=== PATIENT | female | born 1990 | race Caucasian/White ===

== ENCOUNTER → 2017-11-02 | Outpatient (REF) | payer BC | LOC: M LAB REF 13:30 | DX: Z12.4 Encounter for screening for malignant neoplasm of cervix (principal) ==

== ENCOUNTER → 2018-11-14 | Outpatient (REF) | payer BC | LOC: M LAB REF 13:14 | PROVIDERS: ATTEND Advanced Practice Midwife | DX: Z12.4 Encounter for screening for malignant neoplasm of cervix (principal) ==

== ENCOUNTER → 2021-04-08 | Outpatient (REF) | payer BC ==
[2021-04-08 17:16] LABS: HEMATOCRIT 42.3 % (36.0-47.0); HEMOGLOBIN 14.1 g/dl (12.0-15.5); MEAN CORPUSCULAR HEMOGLOBIN 29.1 pg (27.0-33.0); MEAN CORPUSCULAR HGB CONC 33.3 g/dl (32.0-36.5); MEAN CORPUSCULAR VOLUME 87.2 fl (80.0-96.0); PLATELET COUNT, AUTOMATED 411 10^3/uL (150-450); RED BLOOD COUNT 4.85 10^6/uL (4.00-5.40); WHITE BLOOD COUNT 14.7 10^3/uL (4.0-10.0)
[2021-04-08 18:52] LABS: HCG, SERUM QUANTITATIVE 1718 MIU/ML; HEPATITIS C VIRUS ABY INDEX 0.1 INDEX (<0.8); HIV 1&2 SCREEN CENTAUR NEGATIVE (NEGATIVE)
[2021-04-08 20:04] LABS: HEMOGLOBIN A1c 5.2 %
== END ==
LOC: M LAB REF 16:39
PROVIDERS: ATTEND Advanced Practice Midwife
DX: Z32.01 Encounter for pregnancy test, result positive (principal); O36.80X0 Pregnancy with inconclusive fetal viability, not applicable or unspecified; Z3A.00 Weeks of gestation of pregnancy not specified

== ENCOUNTER → 2021-07-16 | Outpatient (CLI) | payer BC | LOC: M LAB 12:51 | PROVIDERS: ATTEND Advanced Practice Midwife | DX: R73.03 Prediabetes (principal) ==

== ENCOUNTER → 2021-09-16 | Outpatient (CLI) | payer BC ==
[2021-09-16 16:25] LABS: HEMATOCRIT 35.6 % (36.0-47.0); HEMOGLOBIN 11.7 g/dl (12.0-15.5); MEAN CORPUSCULAR HEMOGLOBIN 28.4 pg (27.0-33.0); MEAN CORPUSCULAR HGB CONC 32.9 g/dl (32.0-36.5); MEAN CORPUSCULAR VOLUME 86.4 fl (80.0-96.0); PLATELET COUNT, AUTOMATED 373 10^3/uL (150-450); RED BLOOD COUNT 4.12 10^6/uL (4.00-5.40); WHITE BLOOD COUNT 13.7 10^3/uL (4.0-10.0)
== END ==
LOC: M LAB 15:01
PROVIDERS: ATTEND Obstetrics & Gynecology
DX: Z34.02 Encounter for supervision of normal first pregnancy, second trimester (principal); Z3A.00 Weeks of gestation of pregnancy not specified

== ENCOUNTER → 2021-11-18 | Outpatient (REF) | payer BC | LOC: M LAB REF 12:10 | PROVIDERS: ATTEND Obstetrics & Gynecology | DX: Z36.85 Encounter for antenatal screening for Streptococcus B (principal) ==

== ENCOUNTER → 2022-10-08 | Outpatient (REF) | payer OTHER ==
[~2022-10-08] MED LIST: ACET-683 PO; IBUP80TA PO; LABE20TAB PO; NIFE1TAB52 PO; PRENTAB9 PO; TUMS500C PO
[2022-10-08 13:07] LABS: HEMATOCRIT 40.7 % (36.0-47.0); HEMOGLOBIN 13.4 g/dl (12.0-15.5); MEAN CORPUSCULAR HEMOGLOBIN 28.4 pg (27.0-33.0); MEAN CORPUSCULAR HGB CONC 32.9 g/dl (32.0-36.5); MEAN CORPUSCULAR VOLUME 86.2 fl (80.0-96.0); PLATELET COUNT, AUTOMATED 441 10^3/uL (150-450); RED BLOOD COUNT 4.72 10^6/uL (4.00-5.40)
[2022-10-08 13:46] LABS: HEPATITIS B SURFACE ANTIGEN NEGATIVE (NEGATIVE)
[2022-10-08 13:59] LABS: HIV 1&2 SCREEN NEGATIVE (NEGATIVE)
[2022-10-08 14:07] LABS: HEPATITIS C VIRUS ABY INDEX 0.08 INDEX (<0.8)
[2022-10-08 14:13] LABS: HCG, SERUM QUANTITATIVE 7754.7 MIU/ML (<4.2)
== END ==
LOC: M LAB REF 12:02
PROVIDERS: ATTEND Obstetrics & Gynecology
DX: Z32.01 Encounter for pregnancy test, result positive (principal); O36.80X0 Pregnancy with inconclusive fetal viability, not applicable or unspecified

== ENCOUNTER → 2022-10-19 | Outpatient (CLI) | payer OTHER | LOC: M RAD 08:28 | PROVIDERS: ATTEND Obstetrics & Gynecology | DX: O36.80X0 Pregnancy with inconclusive fetal viability, not applicable or unspecified (principal); Z32.01 Encounter for pregnancy test, result positive; Z3A.01 Less than 8 weeks gestation of pregnancy ==

== ENCOUNTER → 2022-12-08 | Outpatient (REF) | payer OTHER | LOC: M LAB REF 16:17 | PROVIDERS: ATTEND Obstetrics & Gynecology | DX: Z34.82 Encounter for supervision of other normal pregnancy, second trimester (principal) ==

== ENCOUNTER → 2023-01-25 | Outpatient (CLI) | payer OTHER | LOC: M WHC 13:04 | PROVIDERS: ATTEND Obstetrics & Gynecology | DX: Z34.82 Encounter for supervision of other normal pregnancy, second trimester (principal) ==

== ENCOUNTER → 2023-03-23 | Outpatient (CLI) | payer OTHER | LOC: M LAB 13:42 | PROVIDERS: ATTEND Obstetrics & Gynecology | DX: Z34.82 Encounter for supervision of other normal pregnancy, second trimester (principal) ==

== ENCOUNTER → 2023-04-28 | Outpatient (REF) | payer OTHER ==
[2023-04-29 13:46] LABS: CREATININE 24 HOUR, URINE 1421.4 MG/24HR (600-1800); CREATININE, URINE 123.6 MG/DL; URINE TOTAL PROTEIN 22.7 MG/DL (0-14)
== END ==
LOC: M LAB REF 13:44
PROVIDERS: ATTEND Obstetrics & Gynecology
DX: O14.90 Unspecified pre-eclampsia, unspecified trimester (principal)

== ENCOUNTER → 2023-04-29 | Outpatient (CLI) | payer OTHER ==
[2023-04-29 08:18] LABS: BASO % 0.1 % (0.0-1.0); EOS % 0.4 % (0.0-3.0); HEMATOCRIT 34.9 % (36.0-47.0); HEMOGLOBIN 11.8 g/dl (12.0-15.5); LYMPH # 2.7 10^3/uL (1.5-5.0); MEAN CORPUSCULAR HEMOGLOBIN 28.4 pg (27.0-33.0); MEAN CORPUSCULAR HGB CONC 33.8 g/dl (32.0-36.5); MEAN CORPUSCULAR VOLUME 84.1 fl (80.0-96.0); MONO # 0.6 10^3/uL (0.0-0.8); MONO % 6.1 % (2.0-8.0); NEUTROPHILS # 6.9 10^3/uL (1.5-8.5); NEUTROPHILS % 66.6 % (36.0-66.0); PLATELET COUNT, AUTOMATED 339 10^3/uL (150-450); RED BLOOD COUNT 4.15 10^6/uL (4.00-5.40)
[2023-04-29 08:35] LABS: URIC ACID 4.5 MG/DL (3.1-7.8)
[2023-04-29 08:37] LABS: LDH LACTATE DEHYDROGENASE 109 U/L (120-246)
[2023-04-29 08:38] LABS: ALT/SGPT 16 U/L (7.0-40); AST/SGOT 13 U/L (<34); BILIRUBIN,TOTAL 0.7 MG/DL (0.3-1.2); CREATININE FOR GFR 0.62 MG/DL (0.55-1.30); GLOMERULAR FILTRATION RATE > 60.0 (>60)
[2023-04-30 08:34] LABS: WHITE BLOOD COUNT 10.3 10^3/uL (4.0-10.0)
== END ==
LOC: M LAB 07:36
PROVIDERS: ATTEND Obstetrics & Gynecology
DX: O14.90 Unspecified pre-eclampsia, unspecified trimester (principal)

== ENCOUNTER 2023-05-11 16:18 | Outpatient (CLI) | payer OTHER ==
[~2023-05-11] VITALS: Ht 172.7 cm; Wt 108.3 kg
[2023-05-11] VITALS (10 sets, daily range): BP systolic 132–179; BP diastolic 60–105
[2023-05-11 17:41] LABS: HEMATOCRIT 36.8 % (36.0-47.0); HEMOGLOBIN 12.2 g/dl (12.0-15.5); MEAN CORPUSCULAR HEMOGLOBIN 28.4 pg (27.0-33.0); MEAN CORPUSCULAR HGB CONC 33.2 g/dl (32.0-36.5); MEAN CORPUSCULAR VOLUME 85.6 fl (80.0-96.0); PLATELET COUNT, AUTOMATED 328 10^3/uL (150-450); WHITE BLOOD COUNT 11.8 10^3/uL (4.0-10.0)
[2023-05-11] MEDS ORDERED: HOME MED LIST COMPLETE! XX SCH (18:00)
[2023-05-11 18:02] LABS: CREATININE,RANDOM URINE 37.2 MG/DL; TOTAL PROTEIN,RANDOM URINE < 6.0 MG/DL (0.0-14.0)
[2023-05-11 18:04] LABS: ALBUMIN 2.5 G/DL (3.2-5.2); ALKALINE PHOSPHATASE 122 U/L (46-116); ALT/SGPT 15 U/L (7.0-40); AST/SGOT 13 U/L (<34); BILIRUBIN,TOTAL 0.6 MG/DL (0.3-1.2); BLOOD UREA NITROGEN 6 MG/DL (9-23); CALCIUM LEVEL 8.2 MG/DL (8.5-10.1); CARBON DIOXIDE LEVEL 23 MMOL/L (20-31); CHLORIDE LEVEL 108 MMOL/L (98-107); GLOMERULAR FILTRATION RATE > 60.0 (>60); GLUCOSE, FASTING 85 MG/DL (60-100); SODIUM LEVEL 139 MMOL/L (136-145); TOTAL PROTEIN 5.9 G/DL (5.7-8.2)
[2023-05-11] MEDS: BETAMETHASONE SOLUSPAN 6MG/ML 5ML VIAL IM SCH (18:35)
== END 2023-05-11 19:18 | disposition home or self-care (01) ==
LOC: M LDO 16:18
PROVIDERS: ATTEND Obstetrics & Gynecology
DX: O13.3 Gestational [pregnancy-induced] hypertension without significant proteinuria, third trimester (principal); O99.613 Diseases of the digestive system complicating pregnancy, third trimester; K21.9 Gastro-esophageal reflux disease without esophagitis; Z3A.35 35 weeks gestation of pregnancy
CPT/HCPCS: 59025; 80053; 82570; 84156; 85027; 96372; G0463; J0702

== ENCOUNTER → 2023-05-11 | Outpatient (REF) | payer OTHER | LOC: M LAB REF 11:29 | PROVIDERS: ATTEND Obstetrics & Gynecology | DX: Z34.83 Encounter for supervision of other normal pregnancy, third trimester (principal); Z36.89 Encounter for other specified antenatal screening; Z3A.00 Weeks of gestation of pregnancy not specified ==

== ENCOUNTER 2023-05-12 17:55 | Inpatient (IN) | payer OTHER ==
[2023-05-12] VITALS (21 sets, daily range): BP systolic 137–170; BP diastolic 66–91
[~2023-05-12] VITALS: Ht 172.7 cm; Wt 107.0 kg
[2023-05-12] MEDS: BETAMETHASONE SOLUSPAN 6MG/ML 5ML VIAL IM ONE (18:23)
[2023-05-12] MEDS ORDERED: PENICILLIN G POTASSIUM 5 MU IV 5 MU in D5W MINI-BAG PLUS 100 ML IV STA (19:24)
[2023-05-12] MEDS ORDERED: LIDOCAINE 1% MDV 20ML VIAL INFIL PRN (19:25)
[2023-05-12] MEDS ORDERED: OXYTOCIN INJ 10UNITS/ML 1ML VIAL IM PRN (19:25)
[2023-05-12] MEDS ORDERED: CARBOPROST TROMETHAMINE 250 MCG/ML AMP IM PRN (19:25)
[2023-05-12] MEDS ORDERED: TRANEXAMIC ACID INJection 1,000 MG in NS 100 ML IV PRN (19:25)
[2023-05-12] MEDS ORDERED: OXYTOCIN DRIP 30 UNITS in IV 1 EA IV PRN (19:25)
[2023-05-12] MEDS: miSOPROStol 50MCG 1/2 TABLET PO SCH (20:27)
[2023-05-12 20:28] LABS: HEMATOCRIT 35.8 % (36.0-47.0); HEMOGLOBIN 12.1 g/dl (12.0-15.5); MEAN CORPUSCULAR HEMOGLOBIN 28.6 pg (27.0-33.0); MEAN CORPUSCULAR HGB CONC 33.8 g/dl (32.0-36.5); MEAN CORPUSCULAR VOLUME 84.6 fl (80.0-96.0); PLATELET COUNT, AUTOMATED 364 10^3/uL (150-450); RED BLOOD COUNT 4.23 10^6/uL (4.00-5.40); WHITE BLOOD COUNT 15.1 10^3/uL (4.0-10.0)
[2023-05-12 20:43] LABS: URIC ACID 4.1 MG/DL (3.1-7.8)
[2023-05-12 20:45] LABS: LDH LACTATE DEHYDROGENASE 119 U/L (120-246)
[2023-05-12 20:46] LABS: ALT/SGPT 17 U/L (7.0-40); AST/SGOT 14 U/L (<34); BILIRUBIN,TOTAL 0.6 MG/DL (0.3-1.2); CREATININE FOR GFR 0.59 MG/DL (0.55-1.30); GLOMERULAR FILTRATION RATE > 60.0 (>60)
[2023-05-12 22:22] LABS: TOTAL PROTEIN,RANDOM URINE 44.6 MG/DL (0.0-14.0)
[2023-05-12 22:26] LABS: CREATININE,RANDOM URINE 144.5 MG/DL
[2023-05-12] MEDS ORDERED: PEN G POT 3,000,000 UNIT/50 ML 3,000,000 UNIT in IV 1 EA IV SCH (23:25)
[2023-05-13] VITALS (60 sets, daily range): BP systolic 96–192; BP diastolic 54–107
[2023-05-13] MEDS: CALCIUM CARBONATE 500 MG CHEW U/D PO PRN (01:18)
[2023-05-13] MEDS: LR 1,000 ML IV SCH (10:28)
[2023-05-13] MEDS: OXYTOCIN DRIP 30 UNITS in IV 1 EA IV SCH (10:28)
[2023-05-13] MEDS: PENICILLIN G POTASSIUM 5 MU IV 5 MU in D5W MINI-BAG PLUS 100 ML IV STA (15:32)
[2023-05-13] MEDS ORDERED: LABETALOL 100MG/20ML VIAL As Ordered ONE (16:36)
[2023-05-13] MEDS: LABETALOL 100MG/20ML VIAL IV ONE (16:41)
[2023-05-13] MEDS: LABETALOL 100MG/20ML VIAL IV STA (17:06)
[2023-05-13] MEDS ORDERED: ePHEDrine SULFATE 25 MG/5 ML(5MG/ML) SYRINGE IVP PRN ×2 (19:00→19:25)
[2023-05-13] MEDS ORDERED: EPIDURAL/PCA KEYS XX PRN ×2 (19:00→19:25)
[2023-05-13] MEDS ORDERED: LR 500 ML IV PRN ×2 (19:00→19:25)
[2023-05-13] MEDS: FENTANYL/ROPIVACAINE/NACL BAG 100 ML EPIDURAL SCH (19:00)
[2023-05-13] MEDS ORDERED: NALOXONE INJ 0.4MG/1ML VIAL IV PRN ×2 (19:00→19:25)
[2023-05-13] MEDS ORDERED: diphenhydrAMINE 50MG/ML VIAL IV PRN ×2 (19:00→19:25)
[2023-05-13] MEDS ORDERED: ONDANSETRON 4MG 2ML VIAL IV PRN (19:25)
[2023-05-13] MEDS: PEN G POT 3,000,000 UNIT/50 ML 3,000,000 UNIT in IV 1 EA IV SCH (19:59)
[2023-05-13] MEDS: ONDANSETRON 4MG 2ML VIAL IV PRN (20:30)
[2023-05-14] VITALS (25 sets, daily range): BP systolic 115–157; BP diastolic 55–87; O2SAT 97
[2023-05-14] MEDS: FENTANYL/ROPIVACAINE/NACL BAG 100 ML EPIDURAL SCH (04:20)
[2023-05-14] MEDS: OXYTOCIN DRIP 30 UNITS in IV 1 EA IV PRN (05:45)
[2023-05-14] MEDS ORDERED: DIBUCAINE 1% OINTMENT 30GM TOP PRN (06:00)
[2023-05-14] MEDS ORDERED: RHOGAM 300MCG (1500IU) INJ IM SCH (06:00)
[2023-05-14] MEDS ORDERED: DOCUSATE SODIUM 100MG CAPSULE PO PRN (06:00)
[2023-05-14] MEDS ORDERED: ANUSOL HC CREAM 30GM TOP PRN (06:00)
[2023-05-14] MEDS ORDERED: ONDANSETRON 4MG 2ML VIAL IV PRN (06:00)
[2023-05-14] MEDS ORDERED: ACETAMINOPHEN TAB 650MG DOSE (2X325MG) PO PRN (06:00)
[2023-05-14] MEDS ORDERED: OXYTOCIN 30UNITS IN 0.9% NaCl 500ML IV BAG As Ordered ONE (06:01)
[2023-05-14] MEDS: LR 1,000 ML IV SCH (07:36)
[2023-05-14] MEDS: OXYTOCIN DRIP 30 UNITS in IV 1 EA IV SCH (07:37)
[2023-05-14] MEDS ORDERED: PRENATAL VITAMINS CHEWABLE TABLET PO SCH (09:00)
[2023-05-14] MEDS: PRENATAL VITAMINS CHEWABLE TABLET PO SCH (09:00)
[2023-05-14] MEDS: ACETAMINOPHEN 500 MG TAB PO PRN (14:31)
[2023-05-14] MEDS: IBUPROFEN 800 MG TAB PO PRN (18:45)
[2023-05-15 02:00] VITALS: BP 126/67; O2SAT 98
[2023-05-15 06:00] VITALS: BP 115/73; O2SAT 97
[2023-05-15] MEDS: IBUPROFEN 600MG TAB PO PRN (08:45)
[2023-05-15 10:00] VITALS: BP 144/87; O2SAT 97
[2023-05-15 14:00] VITALS: BP 145/77; O2SAT 99
[2023-05-15 18:00] VITALS: BP 154/87; O2SAT 99
[2023-05-15 22:00] VITALS: BP 153/76; O2SAT 98
[2023-05-16 02:00] VITALS: BP 152/97; O2SAT 98
[2023-05-16 05:40] VITALS: BP 153/98; O2SAT 98
[2023-05-16 06:00] VITALS: BP 159/88
[2023-05-16 06:20] VITALS: BP 142/86
[2023-05-16] MEDS: MEASLES,MUMPS,RUBELLA VACCINE INJ (MMR-II) SC.IMMUN ONE (07:30)
[2023-05-16 10:00] VITALS: BP 140/81; O2SAT 97
== END 2023-05-16 14:58 | disposition home or self-care (01) | DRG 807 ==
LOC: M LDO 17:55 → M LDI 19:23 → M OBS 05-14 09:17
PROVIDERS: ADMIT Advanced Practice Midwife; ATTEND Advanced Practice Midwife
PROC: 3E033VJ Introduction of Other Hormone into Peripheral Vein, Percutaneous Approach (ICD-10-PCS; 2023-05-12)
PROC: 3E0P7VZ Introduction of Hormone into Female Reproductive, Via Natural or Artificial Opening (ICD-10-PCS; 2023-05-12)
PROC: 10E0XZZ Delivery of Products of Conception, External Approach (ICD-10-PCS; principal; 2023-05-14)
PROC: 0HQ9XZZ Repair Perineum Skin, External Approach (ICD-10-PCS; 2023-05-14)
DX: O14.14 Severe pre-eclampsia complicating childbirth (principal); Z37.0 Single live birth; Z3A.35 35 weeks gestation of pregnancy; O70.0 First degree perineal laceration during delivery